=== PATIENT | female | born 1985 | race Caucasian/White ===

== ENCOUNTER 2017-01-17 18:13 | Inpatient (IN) | payer MEDICAID, OTHER ==
[2015-09-14 21:41] VITALS: BMI 29.2
--- NOTE | 2017-01-17 19:38 | OBHP ---
Datetime: 01/17/2017 18:43 IP Adm Impression: Term, intrauterine IP Admit Plan: Admit to unit Admit Comment, IP Provider: @ 38.5 wk GA recevies pnc at [facility] seen toreyes was todl 2cm. and states starting having contractions and was in area every 20-25 minutes, 09/26, deie slof, vb , +FM. 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 hx of fibroids, ovarian cyst, STI PMH: denies PSH: Denies FHX: non contributory SH:X negateive etoh/tobacco/drugs A/P @ 38.5 wks GA in active labor -pt rexamined c/o of pain /-2 vtx intact, requeisgn pain medication -admi tot L+D -npo, ivf -admission labs -epidural prn -cont toco adn efm Pelvic Type - PN: Adequate Extremities - PN: Normal Abdomen - PN: Normal Back - PN: Normal Breast - PN: Not Done Lungs - PN: Normal Heart - PN: Normal Thyroid - PN: Normal Neurologic - PN: Normal HEENT - PN: Normal General - PN: Normal Presentation-Admit: Vertex FHR - Baseline A Provider: 150 Contraction Comments Provider: q 5-6 min Gestation - Est Wks by US: 38.5 EGA AdmitDate IP: 38.5 IP Chief Complaint: Uterine contractions NICHD Variability Prov Fetus A: Moderate 6-25bpm NICHD Accel Fetus A IP Provider: [id number] NICHD Decel Fetus A IP Provider: None Dilatation, Provider: 2 Effacement, Provider: 50 Station, Provider: -3 Genitourinary Exam: Normal DTRs - PN: Normal
--- NOTE | 2017-01-17 19:43 | OBADHP ---
Datetime: 01/17/2017 18:43 Admit Comment, IP Provider: @ 38.5 wk GA recevies pnc at [place] [facility] seen tody was todl 2cm. and states starting having contractions and was in area every 20-25 minutes, 09/26, deie slof, vb , +FM. 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 hx of fibroids, ovarian cyst, STI PMH: denies PSH: Denies FHX: non contributory SH:X negateive etoh/tobacco/drugs A/P @ 38.5 wks GA in active labor -pt rexamined c/o of pain /-2 vtx intact, requeisgn pain medication -admi tot L+D -npo, ivf -admission labs -epidural prn -cont toco adn efm Pelvic Type - PN: Adequate Extremities - PN: Normal Abdomen - PN: Normal Back - PN: Normal Breast - PN: Not Done Lungs - PN: Normal Heart - PN: Normal Thyroid - PN: Normal Neurologic - PN: Normal HEENT - PN: Normal General - PN: Normal Presentation-Admit: Vertex FHR - Baseline A Provider: 150 Contraction Comments Provider: q 5-6 min Gestation - Est Wks by US: 38.5 IP Chief Complaint: Uterine contractions NICHD Variability Prov Fetus A: Moderate 6-25bpm NICHD Accel Fetus A IP Provider: [id number] NICHD Decel Fetus A IP Provider: None Dilatation, Provider: 2 Effacement, Provider: 50 Station, Provider: -3 Genitourinary Exam: Normal DTRs - PN: Normal EGA AdmitDate IP: 38.5 IP Adm Impression: Term, intrauterine IP Admit Plan: Admit to unit
[2017-01-17] MEDS ORDERED: Oxytocin 30 UNIT 30 UNITS/500 ML BAG IV SCH ×2 (19:45→23:15)
[2017-01-17] MEDS: Lactated Ringer's 1,000 ML IV SCH ×2 (19:58→21:19)
[2017-01-17 20:21] LABS: BASO % 0.3 % (0.0-2.0); EOS # 0.1 K/uL (0.0-0.7); EOS % 0.6 % (0.0-4.0); HEMATOCRIT 29.6 % (34.0-47.0); LYMPH # 3.5 K/uL (1.0-4.3); LYMPH % 30.4 % (20.0-40.0); MEAN CORPUSCULAR HEMOGLOBIN 25.4 pg (27.0-31.0); MEAN CORPUSCULAR HGB CONC 32.7 g/dL (33.0-37.0); MEAN PLATELET VOLUME 10.4 fL (7.2-11.7); MONO # 0.6 K/uL (0.0-0.8); MONO % 5.2 % (0.0-10.0); RED CELL DISTRIBUTION WIDTH 15.4 % (11.5-14.5); WHITE BLOOD COUNT 11.5 K/uL (4.8-10.8)
[2017-01-17 20:22] LABS: MEAN CELL VOLUME 77.6 fL (81.0-99.0)
[2017-01-17 20:23] LABS: RBC URINE < 1 /hpf (0-3); URINE BACTERIA RARE (<OCC); URINE BILIRUBIN NEGATIVE (NEGATIVE); URINE BLOOD NEGATIVE (NEGATIVE); URINE COLOR Yellow (YELLOW); URINE GLUCOSE (UA) NORMAL (Normal); URINE KETONE NEGATIVE (NEGATIVE); URINE LEUKOCYTE ESTERASE TRACE Leu/uL (Negative); URINE PROTEIN NEGATIVE (NEGATIVE); WBC URINE 4 /hpf (0-5)
[2017-01-17 20:29] LABS: CHLORIDE 102 mmol/L (98-107)
[2017-01-17 20:30] LABS: SODIUM 136 mmol/L (132-148)
[2017-01-17] MEDS ORDERED: Oxytocin 30 UNIT 30 UNITS/500 ML BAG IV ONE (20:31)
[2017-01-17 20:32] LABS: ALKALINE PHOSPHATASE 170 U/L (38-126); AST/SGOT 16 U/L (14-36); BILIRUBIN,TOTAL 0.7 mg/dL (0.2-1.3); BLOOD UREA NITROGEN 11 mg/dL (7-17); CARBON DIOXIDE 21 mmol/L (22-30); GFR AFRICAN-AMERICAN > 60; TOTAL PROTEIN 6.9 g/dL (6.3-8.3)
[2017-01-17 20:33] LABS: ALT/SGPT 18 U/L (9-52); CALCIUM 9.2 mg/dl (8.6-10.4); GLUCOSE,RANDOM 86 mg/dL (65-105)
[2017-01-17] MEDS ORDERED: Bupivacaine 0.25% Inj(30mL) ONE (20:43)
[2017-01-17] MEDS ORDERED: Bupivacaine 0.125%/FentaNYL 200 ML EPI ONE (20:43)
[2017-01-17] MEDS ORDERED: Bupivacaine HCl 0.25% PF (10 ml) Inj ONE (21:32)
[2017-01-17] MEDS ORDERED: Oxycodone/Acetaminophen 5/325 mg Tab PO PRN ×2 (23:05)
--- NOTE | 2017-01-17 23:11 | OBDS ---
MATERNAL INFORMATION Provider Comments: pt wwas fully dilatd, atrumatic, spontaneous delivery of head, nuchal cord noted. ataumatic, spontaneous delivery of anterior followed by posterior shoulder followed by delivery of b ruy. both oral and nasal passages of the baby were bulb suctioned. umbilical cord was clamped and cut . Baby was handed to mother on abdomen with rn assistance. cord blood and cord gases collected and s ent x 2. spontaneous delivery of intact placenta with membranes. fundus firm, lower uteirne segment b oggy. bimanual massage. cytotec per rectum given. loewr uteirne segment firm. intact perineum. good hemostasis. no complications. ebl 300 apgs 9,9 live male weight of 7lbs 10 ounces LABOR SUMMARY EDC: 01/26/2017 00:00 No. Babies in Womb: 1 IDENTIFICATION/MEDS BABY A ID Band Number: [id number] Sensor Number: [id number] WEIGHT/LENGTH BABY A Birthweight (gms): 3460 Infant Weight (lb): 7 Infant Weight (oz): 10 Length Inches: 20.00 Infant Length cms: 50.8
[2017-01-18 07:28] LABS: BASO % 0.3 % (0.0-2.0); EOS % 0.3 % (0.0-4.0); HEMATOCRIT 26.1 % (34.0-47.0); LYMPH # 3.2 K/uL (1.0-4.3); LYMPH % 23.7 % (20.0-40.0); MEAN CELL VOLUME 78.2 fL (81.0-99.0); MEAN CORPUSCULAR HEMOGLOBIN 24.9 pg (27.0-31.0); MEAN CORPUSCULAR HGB CONC 31.9 g/dL (33.0-37.0); MONO # 0.7 K/uL (0.0-0.8); MONO % 4.9 % (0.0-10.0); WHITE BLOOD COUNT 13.7 K/uL (4.8-10.8)
--- NOTE | 2017-01-19 00:32 | OBPPN ---
Datetime: 01/18/2017 10:19 PP Pain Prov: Within normal limits PP Breasts Prov: Normal PP Heart Prov: Normal PP Lungs Prov: Normal PP Abdomen/Uterus Prov: Normal PP Lochia Prov: Normal PP Vulva/Perineum Prov: Normal PP CVA Tenderness Prov: Normal PP Extremities Prov: Normal PP C/S Incision Prov: Not Applicable PP Progress Prov: Normal PP Comments Phys Exam Prov: Abdomen: Soft. Non distender. Fundus firm, mobile, non tender, 2 FB belo w umbilicus. Mild to minimal lochia rubra. All other systems reviewed and are negative PP Impression Prov: Normal progression PP Plan Prov: Continue present management PP Progress Note Prov: Patient received, sitting upin bed in room 459. Breast- and bottlefeeding. Ambulating and voiding without difficulty. Denies dizziness, lightheadedness, palpitaitons P.E.: as above. WD in NAD. Awake, alert, oriented to time, person and place. - PPD#1 H/H 8.3/26.1. Rh(+) Assessment: PPD#1, 31 y.o. P4, S/P . Afebrile, vital signs stable. Chronic anemia - asymptoma tic; hemodynamically stable. Clinically stable. Plan: 1) Contniue present managmeent 2) Anaticipate discharge home 01/19/17
[2017-01-19 08:15] VITALS: O2SAT 99
--- NOTE | 2017-01-19 10:10 | OBPPN ---
Datetime: 01/19/2017 10:08 PP Pain Prov: Within normal limits PP Nausea Prov: Denies PP Flatus Prov: Yes PP BM Prov: Yes PP Breasts Prov: Normal PP Heart Prov: Normal PP Lungs Prov: Normal PP Abdomen/Uterus Prov: Normal PP Lochia Prov: Normal PP Vulva/Perineum Prov: Normal PP CVA Tenderness Prov: Normal PP Extremities Prov: Normal PP C/S Incision Prov: Not Applicable PP Progress Prov: Normal PP Impression Prov: Normal progression PP Plan Prov: Discharge PP Progress Note Prov: Pt seen and examined and reports pain is controlled with medication. Pt repor ts ambuating, voiding, passing flatus, no BM. Pt denies any fever, chills, nausea, vomiting, CP, SOB. lightheadness, dizzyness. Pt is breast and bottle feeding and denies any feelings of sadness or depr ession. Pt tolerating regular diet VSS PE: GEN: NAD, AAO x 3 BREAST: NT, Non engorged b/l RES: CTAB/l CVS: RRR, +S1/S2 ABD: soft, NT/ND, +BS. No guarding, no reboudn tenderness, no rigidity FUNDUS: Firm, below level of umbiliucs VE: Minimal lochia, non fouls smelling EXT: no calf tenderness, negative ivone's sign A/P s/p PPD #2 doing well requestng discharge d/c home fo/u clinic 6 weeks precautions given IP PP Procedures: None Vital Signs Provider PP: Reviewed; Within Normal Limits
--- NOTE | 2017-01-19 10:13 | OBDCSUM ---
Datetime: 01/19/2017 10:09 Discharged to, Provider: Home Follow up at, Provider: clinic Disch Instr Activity: Normal activity Disch Instr Diet: Regular Discharge Instructions, Provider: Routine instructions given Discharge Diagnosis, Provider: Term Delivered Discharge Time: 01/19/2017 10:09 Follow up in weeks, Provider: 6 weeks Disch Referrals: None Contraception discussed, Prov: Yes Disch Activity Restrictions: No sexual activity; Nothing in vagina - [place], tampons, douche Discharge Comment, Provider: if fever, chils, nausea, vomiitng, cp, sob, bleeding, pain, passing lar ge clots go to Er Contraception after Delivery: Not Planning to Use
[2017-01-20 04:14] VITALS: BP 114/71; PULSE 75; RESP 20; TEMP 98.3
== END 2017-01-19 23:30 | disposition home or self-care (01) | DRG 373 ==
LOC: C.EROB 18:13 → C.4D 19:44 → C.4M 01-18 01:56
PROVIDERS: ADMIT Obstetrics & Gynecology; ATTEND Obstetrics & Gynecology
PROC: 10E0XZZ Delivery of Products of Conception, External Approach (ICD-10-PCS; principal; 2017-01-17)
DX: O69.81X0 Labor and delivery complicated by cord around neck, without compression, not applicable or unspecified (principal); O99.02 Anemia complicating childbirth; Z3A.38 38 weeks gestation of pregnancy; Z37.0 Single live birth